=== PATIENT | female | born 1985 | race Caucasian/White ===

== ENCOUNTER 2016-09-11 00:22 | Emergency (ER) | payer OTHER ==
[2016-09-11 00:35] VITALS: BP 109/70; PULSE 87; RESP 16; O2SAT 98
--- NOTE | 2016-09-11 00:41 | ED.REPORT ---
HPI-Extremity Problem Upper Date of Service Sep 11, 2016 ED Provider: Dr. Alessandro Higginbotham 30 year old female presents to the ED with a laceration to the tip of the R thumb from a tin can just [employer]. Pt reports moderate pain. Pt denies any other injury. Pt reports that her TDAP is up to date. Nursing Notes Stated Complaint: R THUMB LAC Chief Complaint: Laceration Nursing Notes Reviewed: Yes Allergies: Uncoded Allergies: SULFA (Allergy, Mild, hives, 09/11/16) General Time Seen by MD: 00:41 Chief Complaint Finger injury left 1 Hx Obtained From: Patient Arrived By: Walk-in Onset Occurred: Just prior to arrival Symptom Duration: Since onset Location: : Finger right 1 Quality: Painful Severity: Current: Moderate Pertinent Negative: Pt denies other symptoms Pertinent Negative: Relieved by nothing Past Medical History Past Medical History Healthy Past Surgical History None Smoking History Unknown if Ever Smoker Review of Systems Musculoskeletal: Reports: Extremity pain, Denies: Neck pain Complete sys rev & neg: except as marked. Physical Exam Initial Vital Signs Vital Signs (First) Date Time Temp Pulse Resp B/P Pulse Ox O2 Delivery O2 Flow Rate FiO2 09/11/16 00:35 87 16 109/70 98 Room Air 09/11/16 01:49 36.2 Initial VS: Reviewed General/Constitutional: Well-developed, Well-nourished Head / Eyes: Atraumatic, Normocephalic, PERRL ENT: Conjunctiva normal, No scleral icterus Neck: Full range of motion Respiratory: No respiratory distress Skin: Warm, Dry, No cyanosis Neurologic: Alert, Oriented, Nonfocal Psychiatric: Mood/affect normal, Behavior normal, Normal thought content Wrist / Hand: Neurologic intact, Vascular intact 1.5 cm laceration accross distal aspect of finger. Superficial laceration with no exposed bones or tendons. sensation and neuro intact distally. Interpretation & Diagnostics Pulse Oximetry Interpretation Pulse Oximetry: Pulse Ox normal (98), On room air Procedures Laceration Management Laceration Management: Finger trap splint applied Time: 01:15 Procedure Performed by: ED physician Consent / Setup / Site Prep: Informed consent provided, Consent from patient , Time-out performed, Hand hygiene observed Location of Wound: Tip of R thumb Wound Length: 1 cm (1.5) Wound Preparation: Normal saline Irrigation: Copious Repair Skin: Dermabond Post-Procedure / Complications: No complications, Condition improved, Tolerated procedure well, Patient stable Re-Eval/Medical Decision Med Decision/Clinical Course The wound is superficial. The wound does not involve the tendons, tones or joint. X-ray felt to be not indicated and unnecessary. The wound was copiously irrigated and prepped with Betadine. I was able to close the wound with Dermabond. She will have a Styrofoam splint put over this with Dermabond cartons to protect her finger. She is pretty sure her tetanus is up-to-date. Routine wound care instructions. She is having significant amount of pain so short course of Schaller was prescribed for pain with routine opiate warnings. Re-Evaluation/Progress : Time of Eval: 01:23 Re-Evaluation/Progress Note: Pain improved. Discussed plan for discharge and follow up. All questions addressed. Counseled Regarding: Diagnosis, Need for follow-up, When/why to return to ED Discharge & Departure Impression: Primary Impression: Laceration Disposition: Home Discharge Condition All VS Reviewed: Yes Condition: Improved Patient Instructions: Laceration (ED) Additional Instructions: Keep the wound clean, dry and covered. Use the finger protector as directed. For pain you can take 1-2 Schaller every 6 hours as needed. Do not drink alcohol, drive or use acetaminophen while taking this medication. Return for a wound check in 48-72 hours. If you develop signs of infection (redness, swelling, increasing pain) return to the ER. If you discover that you did not receive your tetanus in the last 5 years return to the ER or see your doctor for an update. Referrals: [facility] Scribe Attestation Portions of this note were transcribed by Jeny Babcock. I, (Dr. Higginbotham) personally performed the history, physical exam and medical decision-making; I reviewed and confirmed the accuracy of the information in the transcribed note. Signed by: Jeny Babcock. Jacqueline, 09/11/16, 0127 copies to: [facility] Alessandro Higginbotham DO Sep 11, 2016 00:41 Jeny Babcock Sep 11, 2016 00:49
[2016-09-11] MEDS ORDERED: Tissue Adhesive Liq (CS Supplied) TOPICAL ONE (00:45)
[2016-09-11] MEDS ORDERED: HYDROcodone-APAP 5-325 mg Tablet PO ONE (01:20)
[2016-09-11 01:49] VITALS: BP 113/68; PULSE 77; RESP 18; O2SAT 98
== END 2016-09-11 01:50 | disposition home or self-care (01) ==
LOC: SED 00:22
DX: S61.011A Laceration without foreign body of right thumb without damage to nail, initial encounter (principal); W26.8XXA Contact with other sharp object(s), not elsewhere classified, initial encounter; Y93.9 Activity, unspecified; Y92.9 Unspecified place or not applicable; Y99.8 Other external cause status